=== PATIENT | female | born 1955 | race Caucasian/White ===

== ENCOUNTER 2018-06-11 06:35 | Day surgery (SDC) | payer BC ==
--- NOTE | 2018-06-08 10:31 | RAD REPORT ---
EXAM DESCRIPTION: RAD - Chest Pa And Lat (2 Views) - 06/08/2018 9:48 am CLINICAL HISTORY: Hypertension Chest pain. COMPARISON: None FINDINGS: The lungs are clear. The heart is normal in size. No displaced fractures. IMPRESSION: No acute or concerning finding suspected.
[2018-06-08 10:40] LABS: Absolute Lymphocytes (CBC) 1.4 K/uL (0.7-4.9); Absolute Monocytes 0.5 K/uL (0.1-1.3); Basophils % 0.9 % (0-1.3); Eosinophils % 5.2 % (0-4.4); MCH 32.8 pg (27.0-35.0); MCV 95.4 fL (80-100); MPV 8.6 fL (7.6-11.3); Monocytes % 10.6 % (3.3-12.3); RBC Red Blood Cell Count 4.51 M/uL (3.86-4.86)
--- NOTE | 2018-06-08 10:42 | EKG ---
Test Date: 2018-06-08 Test Time: 09:36:26 Cotton Opener: COLEMAN MEASUREMENT RESULTS: Intervals: Rate: 64 NC: 142 QRSD: 78 QT: 402 QTc: 414 [place]: P: 65 NC: 142 QRS: 64 T: 56 INTERPRETIVE STATEMENTS: Normal sinus rhythm Minimal voltage criteria for LVH, may be normal variant Borderline ECG No previous ECG available for comparison Electronically Signed On 06-08-18 10:41:36 CDT by Francois Luciano
[2018-06-08 10:48] LABS: Protime INR 0.91
[2018-06-08 10:53] LABS: Potassium 4.2 mmol/L (3.5-5.1)
--- NOTE | 2018-06-10 17:18 | PREOPHP ---
Date of Admission: 06/11/2018 History Of Present Illness: This patient presented my office with a chief complaint of a painful lef t big toe joint, present for a number of months, throbbing in nature, moderate in severity, relieved by rest, worse with activity. The patient wears slip on steel toe boots and relates pain with walkin g, climbing on uneven surfaces. Past Medical History: Includes herpes, anemia, hypertension. Past Surgical History: Includes hysterectomy, finger reattachment, and breast implants. Medications: Include valacyclovir 500 mg and valsartan 80 mg. Allergies: CODEINE AND HYDROCODONE. Social History: The patient denies smoking, but admits to moderate alcohol use. Denies IV drug use. Family History: Includes cancer in her father, hypertension in her mother and father, and cancer in her sister. Physical Examination: Vital Signs: The patient's height is 5 feet 4 inches, weight 150 pounds. General Appearance: The patient is healthy, well developed, well nourished, well oriented x3. Vascular: Evaluation reveals dorsalis pedis and posterior tibial pulses are 4/4 bilaterally. Capill luis refill time is 1 second. Temperature gradient is within normal limits. There is no chief compla int claudication bilaterally. Musculoskeletal: Evaluation reveals lower extremity muscle strength and range of motion to be equal and symmetrical bilaterally. Knees and ankle alignment are within normal limits. Foot assessment, t here is rigid cavus foot type bilaterally subtalar joint shows normal position, but there are forefoo t supinatus bilaterally. There is a medial eminence of the first metatarsal head with decreased rang e of motion 60 degrees bilateral, equinus is noted to be of 5 degrees bilaterally. Remaining digits are within normal limits bilaterally. No subcutaneous soft tissue masses are palpated bilaterally. Skin evaluation: There is no rash, ulcer, tumor or contracture of the skin bilaterally. The patient has a fungal nail infection which is being treated on the left foot. The patient also has a purple skin discoloration on the plantar aspect measuring 3.5 cm x 1.5 cm distal to the heel top. This has been present for many years without change. Neurologic evaluation: Reveals deep tendon reflexes for the patellar and Achilles to be 5/5 bilatera lly. Vibratory and sharp dull sensation within normal limits. Radiographic Data: X-ray evaluation reveals no fracture, tumor, or degenerative joint disease. Bone s well mineralized and there is dorsiflexion of the first metatarsal with a lateral deviation of the hallux and sesamoids and an increase in the intermetatarsal angle. Intermetatarsal angle was measure 15 degrees, hallux abductus angle is measured 22 degrees. Diagnosis: Hallux valgus, left foot with pain in the foot joints of the left foot and a congenital m etatarsus primus varus. Plan: We recommended treatment due to the lack of success with conservative care including over-the- counter medications and shoe change, it is for surgical management. We recommended procedure for a b union correction with first metatarsal osteotomy and fixation of choice. The Tl bunionectomy typ e will be attempted and alternatives needed intraoperatively. The patient understands the risks, true efits, alternatives of the above mentioned procedure including, but not limited to the risk of pain, swelling, numbness, stiffness, infection, nonhealing of skin or bone, risk of DVT, has been explained to the patient along with her signs and symptoms. Due to lack of response to conservative treatment , the patient longer desires conservative care or surgical management. The patient has been given wr itten instructions with physical therapy machine as well as written postop instructions. Postop medi cation of Toradol for 5 days has been given to the patient due to her allergies to hydrocodone and co deine. The patient is scheduled for surgery at [facility] on June 11, 2018. Preop erative labs have been performed and will be evaluated. Medical H and P completed by Anesthesia. MONTY/ANIL Voice ID: [id number]
[2018-06-11] MEDS ORDERED: Ringers Lactate 1,000 ML IV ONE (06:52)
[2018-06-11] MEDS ORDERED: CEFAZOLIN/SWI 1gm 1 GM/10 ML SYR ONE (06:53)
[2018-06-11] MEDS ORDERED: PROPOFOL 200 MG/20 ML VIAL IV ONE ×3 (07:02→08:30)
[2018-06-11] MEDS ORDERED: LIDOCAINE 2% MPF 5 ML VIAL ONE (07:03)
[2018-06-11] MEDS ORDERED: FENTANYL CITR 100 MCG/2 ML ONE (07:03)
[2018-06-11] MEDS ORDERED: MIDAZOLAM HCL 2 MG/2 ML INJ ONE (07:03)
[2018-06-11] MEDS ORDERED: BUPIVACAINE 0.5% PF 10 ML VIAL ONE (07:03)
[2018-06-11] MEDS ORDERED: LIDOCAINE 1% MPF 5 ML VIAL ONE (07:03)
[2018-06-11] MEDS ORDERED: DEXAMETHASONE 4 MG/ML VIAL ONE (07:03)
[2018-06-11] MEDS ORDERED: Mastisol Adhesive Liq ONE (07:04)
--- NOTE | 2018-06-11 10:35 | RAD REPORT ---
EXAM DESCRIPTION: RAD - Foot Left 2 View - 06/11/2018 9:19 am CLINICAL HISTORY: Left foot surgery FINDINGS: No dislocation is noted. An oblique lucency within the distal first metatarsal presumably is a postsurgical change rather than a nondisplaced fracture. This should be correlated clinically. The remainder of the examination is unremarkable
--- NOTE | 2018-06-11 11:43 | OP ---
Date of Procedure: 06/11/2018 Surgeon: Ronal Sweeney DPM Preoperative Diagnosis: Hallux valgus deformity, left foot. Postoperative Diagnosis: Hallux valgus deformity, left foot. Procedure: Bunionectomy with first metatarsal osteotomy, plantarflexory with SonicPin fixation, left foot. Anesthesia: Via Local infiltration. Description Of Procedure: The patient was brought into the operating room, placed on the operating r oom table in supine position. Once adequate IV sedation was obtained, the patient was injected with a total of 10 cc of 0.5% Marcaine plain in the left foot with a Solis block. The patient was then pre pped and draped in usual sterile manner and the left extremity was elevated and an Esmarch bandage wa s applied to exsanguinate the blood supply. Pneumatic ankle tourniquet was elevated to 250 mmHg and the Esmarch was removed. Attention was then directed to the first MPJ on the left foot, where a 5-cm dorsal linear incision was made overlying the first MPJ. The incision was deepened via sharp and bl unt dissection down to the level of capsule. All neurovascular structures were avoided. All bleeder s were clamped and bovied. An inverted L incision was made in the capsule of the first MPJ and disse cted free from its bony attachments. The medial eminence was brought into view and resected utilizin g an oscillating saw. The first interspace was then approached and a lateral capsulotomy, adductor t enotomy, and EHB tenotomy was performed. The foot was then repositioned with the knee bent and an os teotomy was created in the head of the first metatarsal in a V-shape fashion at 60 degrees with the a sharmila proximal, the apex distal. It was angulated in a plantarflexory fashion. The foot was then repo sitioned and the capital fragment was shifted laterally and impacted medially upon the shaft of the f irst metatarsal. The remaining medial eminence was removed utilizing the oscillating saw. Utilizing a [employer] SonicPin the procedure was followed for drilling, tapping, and placement of a 26-mm length pin in the head fixating upon the shaft of the first metatarsal. Post SonicPin placement, the head was seen to be in excellent position with no movement. The rough edges were smoothed utilizing a rot luis anya. The area was flushed with copious amounts of sterile saline. A medial capsulorrhaphy was then performed with the toe held in corrected position and 2-0 Vicryl was utilized to reapproximate t he capsular tissue with the toe held in a corrected position. Range of motion was seen to be at 80 d egrees on the table with the first ray in the rectus fascia. The area was flushed again with copious amounts of sterile saline. Skin was reapproximated utilizing 4-0 Prolene horizontal mattress suture . The foot was then bandaged with Adaptic, dry sterile gauze, dry sterile Joo, Kerlix, cold therap y pad, and Zia bandage. Pneumatic ankle tourniquet was deflated and capillary return was seen to be instantaneous to all digits. The patient was sent to recovery in satisfactory condition. KRYSTA Voice ID: [id number] Report ID: [id number]
--- NOTE | 2018-06-11 11:43 | DS ---
Date Of Surgery: 06/11/2018 Surgeon: Ronal Sweeney DPM. Preoperative Diagnosis: Hallux valgus deformity, left foot. Postoperative Diagnosis: Hallux valgus deformity, left foot. Procedure: Plantarflexory bunionectomy with first metatarsal osteotomy and SonicPin fixation, left f oot. The patient tolerated the procedure and anesthesia well and was sent to recovery in satisfactory cond ition. The patient will be discharged to home with postoperative instructions in the written form, c old therapy unit, and pain medication and emergency phone number. The patient will be seen in off ice for postoperative care. The patient may ambulate in a postop shoe with normal diet. KRYSTA Voice ID: [id number] Report ID: [id number]
== END 2018-06-11 10:30 | disposition home or self-care (01) ==
LOC: OR 06:35
PROVIDERS: ATTEND Podiatrist
PROC: 0QSP04Z Reposition Left Metatarsal with Internal Fixation Device, Open Approach (ICD-10-PCS; principal; 2018-06-11 07:30)
PROC: 0QBP0ZZ Excision of Left Metatarsal, Open Approach (ICD-10-PCS; 2018-06-11 07:30)
DX: M20.12 Hallux valgus (acquired), left foot (principal); M21.612 Bunion of left foot; I10 Essential (primary) hypertension; D64.9 Anemia, unspecified; B00.9 Herpesviral infection, unspecified; Z88.5 Allergy status to narcotic agent
CPT/HCPCS: 36415; 71046; 80048; 85025; 85610; 85730; 93005; J0690; J2250; J3010